=== PATIENT | female | born 1980 | race Caucasian/White ===

== ENCOUNTER 2018-04-30 07:18 | Day surgery (SDC) | payer OTHER, SELFPAY ==
[2018-04-30 07:24] VITALS: BP 119/73; PULSE 77; RESP 16; TEMP 36.4; O2SAT 97
[2018-04-30] MEDS: Lactated Ringers 1,000 ML 80 ML IV (07:55)
[2018-04-30] MEDS: Bupivacaine 0.25% Pres-Free 30 ML VIAL (09:13)
[2018-04-30] MEDS: Bupivacaine 0.25% Pres-Free 10 ML VIAL (09:17)
[2018-04-30] MEDS: Lidocaine 1% Multi-Dose 50 ML VIAL (09:29)
--- NOTE | 2018-04-30 09:55 | W.PM.OP ---
Date of service: 04/30/18 Time of Service: 09:55 Operative Note DATE OF PROCEDURE: 04/30/18 PRE-OP DIAGNOSIS: umbilical hernia POST-OP DIAGNOSIS: same PROCEDURE: open repair w/ ventrilux patch- bard SURGEON: Beth Giles ASSISTING SURGEON: Dolly Rodriguez ANESTHESIA: GETA ESTIMATED BLOOD LOSS: 5 TOURNIQUET TIME: 0 Patient was transported to: same day Patient's condition: stable Implants: 6.4 cm ventrilux mesh Indications: pain Findings: omental herniation Procedure Description: dictated
--- NOTE | 2018-04-30 09:57 | W.PM.DSUDISC ---
Discharge Plan Disposition Patient Disposition: HOME Condition: Good Discharge Details Attending Provider: Beth Giles Primary Care Provider: Marlen Maldonado Home Meds and New Rx's Prescriptions: No Action No Known Home Meds RF: 0 Discharge Instructions Additional Instructions: Dr. Giles HERNIA REPAIR ? POSTOPERATIVE INSTRUCTIONS ? The MESH surgery for hernia repair allows the patient to return to normal activities at an early date. Patients who have this type of surgery can usually be expected to return to work within two weeks and have minimal amounts of discomfort. ? ACTIVITY: The day of surgery should be spent resting. However, you can be up for short periods of time, I.E., going to the bathroom or kitchen. Avoid lifting or straining. On the day following surgery, you can be up and about as desired. ? LIFTING: Restrict your lifting to no more than five (5) pounds for the first week following surgery. ? DIET: There are no dietary restrictions following surgery. However, you may want to start with small amounts of liquids to avoid nausea the day of surgery. ? INCISION CARE: A dressing covers your incision. You will notice strips of tape covering the wound ? DO NOT REMOVE THESE STRIPS - they help the wound to heal. After 24 hours you may shower and apply a clean dressing over the strips of tape. The dressing may be replaced as necessary. An ice bag may be applied to the incision for 72 hours following surgery. ? SIGNS OF INFECTION: It is not unusual to have some black and blue discoloration of the skin around the incision. It will slowly disappear. If you have any increased redness, drainage, fever (above 100 degrees), please contact your doctor for an examination. ? DISCOMFORT: You may expect to have some mild discomfort at the incision sight. If severe pain develops you should contact your doctor for further instructions. ? URINATION: Patients who have surgery occasionally have problems urinating. If you experience problems and are not able to urinate within 6 hours following your surgery, please call your doctor immediately or go to your nearest Emergency Room for evaluation. ? DRIVING: NO driving for five (5) days after surgery ? MEDICATIONS: You have been given a prescription for pain. If you are taking pain medication, follow the instructions on the label and do not drive. Some patients have conditions that require antibiotics, please follow the instructions on the label and take all of the antibiotics. Pain medications can make you very constipated. Make sure you are moving your bowels daily. If not, take Miralax, milk of magnesia or magnesium citrate. ? REPORT: Unusual swelling, severe pain, unresolved nausea, signs of infection, or difficulty in urination to your surgeon. Follow up in clinic with Dr. Giles in 1-2 weeks. Discharge Orders Discharge Orders: Discharge Order (Routine); Ordered 04/30/18 Ordered By: Beth Giles DS: Diagnosis Discharge Diagnosis (1) Umbilical hernia: Status: Acute
[2018-04-30 10:09] VITALS: BP 98/42; PULSE 71; RESP 19; TEMP 36.6; O2SAT 92
[2018-04-30 10:14] VITALS: BP 94/45; PULSE 71; RESP 19; TEMP 36.6; O2SAT 94
[2018-04-30 10:19] VITALS: BP 96/44; PULSE 71; RESP 17; TEMP 36.6; O2SAT 96
[2018-04-30 10:34] VITALS: BP 100/48; PULSE 66; RESP 19; TEMP 36.5; O2SAT 96
[2018-04-30 11:17] VITALS: BP 99/53; PULSE 63; RESP 16; TEMP 36.5; O2SAT 97
--- NOTE | 2018-05-06 09:59 | ROE_ITS ---
DATE OF PROCEDURE: April 30, 2018 PREOPERATIVE DIAGNOSIS: Umbilical hernia. POSTOPERATIVE DIAGNOSIS: Same. PROCEDURE: Open repair with medium Ventralex patch from Bard. SURGEON: Beth Giles D.O. TMR TEACHER: Pearl Gonsalves ANESTHESIA: General. ESTIMATED BLOOD LOSS: 5 cc's CONDITION: Patient tolerated the procedure well without complication. HISTORY: Ms. Bella is a 37-year-old female who was seen at the request of her primary care physician regarding a symptomatic umbilical hernia and is here today for an open umbilical hernia repair. Informed consent is obtained, explaining risks and benefits of the procedure, including but not limited to bleeding, infection, scarring, recurrence, damage to bowels and blood vessels, bowel obstruction or complications from anesthesia and other unforetold complications. DESCRIPTION OF PROCEDURE: The patient was marked in preop. She received preop antibiotics. She was brought to the operative suite and placed in the supine position with all bony surfaces padded. Anesthesia was administered per the Department of Anesthesia. The patient was prepped and draped in a sterile fashion using ChloraPrep scrub solution. She did receive IV antibiotics preop. A time-out was performed. 30 cc's of 0.25% Marcaine with epinephrine was used for local anesthetization. The patient had been marked in preop prior to coming to the OR. A curvilinear incision was made from the 2 o'clock to 3 o'clock position in the supraumbilical position. Electrocautery was used to provide hemostasis and dissect down to the fascia. The umbilicus was dissected off the fascia sharply. [place]'s are used to facilitate visualization. The fascial edges are grasped at 3 and 9 o'clock with Garth's and elevated. A finger was placed into the umbilicus. She does have a small hernia sac and this was excised with electrocautery. A finger was placed into the defect to inspect and to insure there are no omental adhesions up to the fascia edges. A medium 6.4 cm Bard Ventralex hernia patch was used and this was placed into the defect and then over-sewn/sewn in with #2-0 interrupted Prolene. The wound was copiously irrigated. The umbilicus was tacked down to the incision. The deep tissue is approximated with #2-0 Vicryl and the skin was closed with #4-0 Monocryl in a subcuticular fashion. Steri tapes and sterile dressings are applied. The patient tolerated the procedure well without complication and transferred to recovery room in stable condition. cc: Marlen Maldonado M.D.
== END 2018-04-30 12:05 | disposition home or self-care (01) ==
PROVIDERS: PCP Family Medicine; Visit Provider Surgery
PROC: (CPT 49585; principal; 2018-04-30 08:15)
DX: K42.9 Umbilical hernia without obstruction or gangrene (principal)
CPT/HCPCS: 49585; 76942; C1781; J0690; J1100; J1885; J2250; J2405

== ENCOUNTER 2019-08-08 00:10 | Outpatient (CLI) | payer OTHER, SELFPAY ==
--- NOTE | 2019-08-08 | DI.RAD_ITS ---
EXAM: XR ANKLE RT COMPLETE CLINICAL HISTORY: RT ANKLE PAIN, M25.571 TECHNIQUE: COMPARISON: No exams were available for comparison FINDINGS: Three views were obtained. The ankle mortise appears well maintained. There is a small osteophyte o f the site of attachment of the plantar fascia on the calcaneus. No other bony abnormality seen. IMPRESSION:
== END 2019-08-08 00:30 ==
PROVIDERS: PCP Family Medicine; Referring Provider Family Medicine; Visit Provider Family Medicine
DX: M25.571 Pain in right ankle and joints of right foot (principal); M25.771 Osteophyte, right ankle
CPT/HCPCS: 73610